=== PATIENT | female | born 1990 | race African-American/Black ===

== ENCOUNTER 2016-08-04 10:00 | Emergency (ER) | payer OTHER ==
[2016-08-04 10:33] VITALS: TEMP 98.5; BMI 30.8
[2016-08-04] MEDS ORDERED: ONDANSETRON 4 MG/2 ML VIAL IVPUSH ONE (10:53)
[2016-08-04] MEDS ORDERED: SODIUM CHLORIDE 1,000 ML IV STA (10:53)
--- NOTE | 2016-08-04 10:53 | PDOC ---
History of Present Illness - General History Source: Patient Exam Limitations: No Limitations - History of Present Illness Initial Comments: 08/04/16 10:56 The patient is a 26 year old female (18 weeks ) with no significant past medical history who presents to the ED with abdominal pain since last night. The patient reports she ate a buffalo chicken sandwich with blue cheese last night. She states she woke up at 4 am this morning with a sudden onset of abdominal pain. Patient reports generalized abdominal pain that is worse in her lower quadrant. Patient reports nausea and vomiting associated with present symptoms. Denies fevers or chills. Denies diarrhea or hematochezia. Denies headache or dizziness. Denies dysuria or changes in urinary output. Denies any other symptoms. <Violette Recio - Last Filed: 08/04/16 10:56> <Danae Dunlap - Last Filed: 08/04/16 14:19> - General Chief Complaint: Pain Stated Complaint: Nausea/ABD PAIN Time Seen by Provider: 08/04/16 10:38 Past History <Violette Recio - Last Filed: 08/04/16 10:56> - Past Medical History Other medical history: denies - Reproductive History Is Patient Now?: Yes - Psycho/Social/Smoking Cessation Hx Suicidal Ideation: No Smoking History: Current some day smoker Number of Cigarettes Smoked Daily: 0 Information on smoking cessation initiated: No Hx Alcohol Use: No Drug/Substance Use Hx: Yes Substance Use Type: Marijuana <Danae Dunlap - Last Filed: 08/04/16 14:19> - Past Medical History Allergies/Adverse Reactions: Allergies Allergy/AdvReac Type Severity Reaction Status Date / Time No Known Allergies Allergy Verified 08/04/16 10:27 Home Medications: Ambulatory Orders NK [No Known Home Medication] 08/04/16 Review of Systems - Review of Systems Able to Perform ROS?: Yes Comments:: 08/04/16 10:57 GENERAL/CONSTITUTIONAL: No fever or chills. No weakness. HEAD, EYES, EARS, NOSE AND THROAT: No change in vision. No ear pain or discharge. No sore throat. CARDIOVASCULAR: No chest pain or shortness of breath. RESPIRATORY: No cough, wheezing, or hemoptysis. GASTROINTESTINAL:+ abdominal pain, nausea, vomiting. No diarrhea or constipation. GENITOURINARY: No dysuria, frequency, or change in urination. MUSCULOSKELETAL: No joint or muscle swelling or pain. No neck or back pain. SKIN: No rash NEUROLOGIC: No headache, vertigo, loss of consciousness, or change in strength/ sensation. ENDOCRINE: No increased thirst. No abnormal weight change. HEMATOLOGIC/LYMPHATIC: No anemia, easy bleeding, or history of blood clots. ALLERGIC/IMMUNOLOGIC: No hives or skin allergy. All Other Systems: Reviewed and Negative <Violette Recio - Last Filed: 08/04/16 10:56> *Physical Exam - Vital Signs Last Vital Signs Temp Pulse Resp BP Pulse Ox 98.5 F 61 16 127/79 100 08/04/16 10:00 08/04/16 10:00 08/04/16 10:08/04/16 10:00 08/04/16 10:00 - Physical Exam Comments: 08/04/16 10:57 GENERAL: Awake, alert, and fully oriented, in no acute distress HEAD: No signs of trauma EYES: PERRLA, EOMI, sclera anicteric, conjunctiva clear ENT: Auricles normal inspection, hearing grossly normal, nares patent, oropharynx clear without exudates. Moist mucosa NECK: Normal ROM, supple, no lymphadenopathy, JVD, or masses LUNGS: Breath sounds equal, clear to auscultation bilaterally. No wheezes, and no crackles HEART: Regular rate and rhythm, normal S1 and S2, no murmurs, rubs or gallops ABDOMEN: + mild right lower quadrant tenderness. Soft, normoactive bowel sounds. No guarding, no rebound. No masses EXTREMITIES: Normal range of motion, no edema. No clubbing or cyanosis. No cords, erythema, or tenderness NEUROLOGICAL: Cranial nerves II through XII grossly intact. Normal speech, normal gait SKIN: Warm, Dry, normal turgor, no rashes or lesions noted. <Violette Recio - Last Filed: 08/04/16 10:56> - Vital Signs Last Vital Signs Temp Pulse Resp BP Pulse Ox 98.5 F 61 16 127/79 100 08/04/16 10:00 08/04/16 10:00 08/04/16 10:00 08/04/16 10:00 08/04/16 10:00 <Danae Dunlap - Last Filed: 08/04/16 14:19> ED Treatment Course - LABORATORY CBC & Chemistry Diagram: 08/04/16 10:56 08/04/16 10:56 <Danae Dunlap - Last Filed: 08/04/16 14:19> Medical Decision Making - Medical Decision Making 08/04/16 14:08 Pt reports improvement in symptoms. Minimal RLQ tenderness on exam. No elevated WBC, no fever. Offering PO challenge. Await UA. <Danae Dunlap - Last Filed: 08/04/16 14:19> *DC/Admit/Observation/Transfer - Attestations Scribe Attestion: 08/04/16 10:57 Documentation prepared by Violette Recio, acting as certified medical technician assistant for Danae Dunlap MD <Violette Recio - Last Filed: 08/04/16 10:56> - Discharge Dispostion Admit: No <Danae Dunlap - Last Filed: 08/04/16 14:19> Diagnosis at time of Disposition: Abdominal pain affecting - Discharge Dispostion Disposition: HOME Condition at time of disposition: Stable
[2016-08-04] MEDS ORDERED: ONDANSETRON 4 MG/2 ML VIAL ONE (11:02)
[2016-08-04 11:03] LABS: BASOPHIL 0.6 % (0-2.0); EOSINOPHIL 1.3 % (0-4.5); MCH 35.1 pg (25.7-33.7); MCHC 33.8 g/dl (32.0-36.0); MEAN CELL VOLUME 103.9 fl (80-96); MEAN PLT VOLUME 8.8 fl (7.5-11.1); NEUTROPHILS 69.7 % (42.8-82.8); PLATELET COUNT 134 K/MM3 (134-434); RDW 12.4 % (11.6-15.6); WHITE BLOOD COUNT 7.2 K/mm3 (4.0-10.0)
[2016-08-04] MEDS ORDERED: ACETAMINOPHEN 325 MG TABLET (FP) PO ONE (11:09)
[2016-08-04] MEDS ORDERED: ACETAMINOPHEN 325 MG TABLET (FP) ONE (11:09)
[2016-08-04 11:29] LABS: ALBUMIN 3.2 g/dl (3.4-5.0); ANION GAP 10 (8-16); BILIRUBIN,TOTAL 0.3 mg/dL (0.2-1.0); CALCIUM 8.7 mg/dL (8.5-10.1); CO2 24 mmol/L (21-32); COCKROFT - GAULT 295.5875; CREATININE 0.5 mg/dL (0.55-1.02); GLUCOSE,RANDOM 75 mg/dL (74-106); SGOT/AST 14 U/L (15-37); SGPT/ALT 12 U/L (12-78); TOT PROT 6.5 g/dl (6.4-8.2)
[2016-08-04 11:44] LABS: ALK PHOS 55 U/L (45-117)
[2016-08-04 14:28] VITALS: BP 137/64; PULSE 74
[2016-08-04 14:31] LABS: URINE APPEARANCE CLEAR; URINE BILIRUBIN NEGATIVE (NEGATIVE); URINE BLOOD NEGATIVE (NEGATIVE); URINE COLOR LTYELLOW; URINE GLUCOSE (UA) NEGATIVE (NEGATIVE); URINE KETONE NEGATIVE (NEGATIVE); URINE LEUK ESTERASE NEGATIVE (NEGATIVE); URINE NITRITE NEGATIVE (NEGATIVE); URINE PROTEIN NEGATIVE (NEGATIVE); URINE UROBILINOGEN NEGATIVE E.U./dl (0.2-1.0)
== END 2016-08-04 14:27 | disposition home or self-care (01) ==
LOC: JER 10:00
PROC: 3E033GC Introduction of Other Therapeutic Substance into Peripheral Vein, Percutaneous Approach (ICD-10-PCS; principal; 2016-08-04)
PROC: 3E0337Z Introduction of Electrolytic and Water Balance Substance into Peripheral Vein, Percutaneous Approach (ICD-10-PCS; 2016-08-04)
DX: O26.892 Other specified pregnancy related conditions, second trimester (principal); R10.84 Generalized abdominal pain; Z3A.18 18 weeks gestation of pregnancy; F17.210 Nicotine dependence, cigarettes, uncomplicated
CPT/HCPCS: 36415; 76801-TC; 80053; 81003; 83690; 84702; 85025; 87086; 96361; 96374; 99283-25

== ENCOUNTER 2017-12-23 19:50 | Emergency (ER) | payer SELFPAY ==
--- NOTE | 2017-12-23 20:12 | PDOC ---
Attending Attestation - HPI HPI: 12/23/17 21:15 The patient is a 27 year old female brought via EMS, with no significant past medical history, who presents to the ED complaining of abdominal pain, nausea and vomit onset today. She describes her abdominal pain as ranging from mild to moderate, localized in the epigastric region adn RUQ. She denies any radiation or modifying factors. She notes multiple episodes of emesis, nonbloody and nonbilious. She reports that she was drinking alcohol last night and shes usually not a drinker. The patient had an elective on 12/19/17, for which she had 2 doses of the pill at 8 weeks . The patient has a follow up appointment in 5 days. The patient is currently being treated for a UTI. The patient denies chest pain, shortness of breath, headache and dizziness. Denies fever, chills, diarrhea or constipation. Allergies: None Past surgical history: None reported Social History: Alcohol and mairjuana use - Physicial Exam PE: 12/23/17 21:15 Vitals: Triage vital signs reviewed General Appearance: No acute distress, well nourished, well developed Head: Atraumatic Eyes: Pupils equal reactive round, extraocular movement intact Ears: TM's normal bilaterally Nose: Nares patent bilaterally; no nasal congestion Throat: Posterior oropharynx without erythema, mucous membranes moist Neck: Supple; No nuchal rigidity Chest Wall: Nontender Cardiac: Regular rate and rhythm, no murmurs, no rubs, no gallops Lungs: Clear to auscultation bilateral, good air movement bilaterally Abdomen: (+) Right lower quadrant tenderness. Soft, nondistended, normal bowel sounds Rectal: Exam deferred Extremities: Full range of motion to all extremities, no cyanosis, clubbing, or edema Skin: Warm and dry, no rashes or lesions, no rash, no petechiae Neuro: AOX3; Cranial Nerves 2-12 grossly intact, Strength intact to all extremities, Sensation intact to all extremities, gait normal Psych: Normal mood, normal affect <Tadeo Haney - Last Filed: 12/23/17 21:15> - Resident Resident Name: Vivian Parada - ED Attending Attestation I have performed the following: I have examined & evaluated the patient, The case was reviewed & discussed with the resident, I agree w/resident's findings & plan, Exceptions are as noted - Medical Decision Making 12/24/17 03:19 27 years old with right sided abdominal discomfort. Patient had an elective via methotrexate on 1016 she states that her prior ultrasound demonstrated a intrauterine . Chest follow-up in 5 days and she is currently being treated for UTI. During her workup with her [employer] she was noted to have fibroids She presents to the emergency department with right-sided abdominal discomfort intermittent with no clear exacerbating or alleviating factors. Given the recent and right-sided abdominal pain and transvaginal ultrasound as well as CAT scan were ordered There was no acute pathology noted on either imaging Status post Toradol patient feels better She will follow-up with her [employer] in 5 days return to the emergency department for any severe returning symptoms or for any concerns. <Sharad Jameson - Last Filed: 12/24/17 03:19>
[2017-12-23 20:17] VITALS: BP 123/62; PULSE 63; TEMP 98.4; BMI 29.4
[2017-12-23] MEDS ORDERED: ACETAMINOPHEN 1000 MG/100 ML VIAL (NON FORMULARY) IVPB ONE (20:33)
[2017-12-23] MEDS ORDERED: SODIUM CHLORIDE 0.9% 500 ML INFUS.BAG IV ONE (20:33)
[2017-12-23] MEDS ORDERED: ONDANSETRON 4 MG/2 ML VIAL IVPUSH ONE (20:35)
--- NOTE | 2017-12-23 20:52 | PDOC ---
History of Present Illness - General Chief Complaint: Alcohol intoxication Stated Complaint: STOMACH PAIN Time Seen by Provider: 12/23/17 20:07 History Source: Patient Exam Limitations: No Limitations - History of Present Illness Initial Comments: 12/23/17 20:15 This is a 27 YOF who is , had elective medical 12/19/17, and current UTI for which she is being treated, who drank excessive EtOH last night and awakened this morning with abdominal pain which is diffuse but worse in RUQ , RLQ, and epigastrium and has worsened throughout the day now at a constant 10/ 10 despite taking tramadol at home. She additionally notes nausea, a few episodes NBNB vomiting, and a few episodes black sticky stool. She denies fever , chills, constipation, vaginal discharge, SOB, chest pain, headache, neck pain , lightheadedness, or other symptoms. She attempted to eat today but was not able to keep anything down, and eating made the pain a bit worse. She has had continued mild vaginal bleeding for the past several days since taking the medication. She denies having an ectopic and states that she decided to have the elective because she was not ready to have another child. Past History - Past Medical History Allergies/Adverse Reactions: Allergies Allergy/AdvReac Type Severity Reaction Status Date / Time No Known Allergies Allergy Verified 08/04/16 10:27 Home Medications: Ambulatory Orders NK [No Known Home Medication] 08/04/16 - Suicide/Smoking/Psychosocial Hx Smoking History: Current every day smoker Have you smoked in the past 12 months: Yes Number of Cigarettes Smoked Daily: 0 Information on smoking cessation initiated: No Hx Alcohol Use: Yes Drug/Substance Use Hx: No Substance Use Type: Marijuana Review of Systems - Review of Systems Able to Perform ROS?: Yes Constitutional: Yes: Malaise. No: Chills, Fever, Unexplained wgt Loss HEENTM: No: Nose Congestion, Throat Pain Respiratory: No: Cough, Shortness of Breath Cardiac (ROS): No: Chest Pain, Palpitations ABD/GI: Yes: Nausea, Vomiting, Other (black stool, abdominal pain). No: Constipated : Yes: Burning, Dysuria, Other (vaginal bleeding). No: Discharge, Frequency, Hematuria Musculoskeletal: No: Back Pain, Neck Pain Integumentary: No: Bruising, Rash Neurological: No: Headache, Numbness, Tingling, Weakness, Dizziness Endocrine: No: Unexplained Weight Gain, Unexplained Weight Loss *Physical Exam - Vital Signs Last Vital Signs Temp Pulse Resp BP Pulse Ox 98.4 F 63 18 123/62 100 12/23/17 20:12 12/23/17 20:12 12/23/17 20:12 12/23/17 20:12 12/23/17 20:12 GENERAL: uncomfortable appearing, mild distress, nontoxic nourished, A/Ox4, speaking in full sentences, answers questions appropriately, obese HEENT: PERRLA, EOMI, moist mucous membranes, no posterior pharyngeal erythema, no tonsillar swelling or exudates, no cervical lymphadenopathy NECK: No midline ttp, no spinal stepoff or deformity, full ROM, supple CARDIOVASCULAR: Regular rate and rhythm, normal S1S2, no MGR, radial and DP pulses 2+ and symmetric, capillary refill <2 seconds, extremities warm and well- perfused LUNGS/RESPIRATORY: No respiratory distress, normal and symmetric chest movements during respirations, lungs CTA bilaterally, equal breath sounds, no cyanosis, no nail clubbing GI/ABDOMEN: Symmetric appearance, normoactive bowel sounds, soft, moderate RLQ tenderness to palpation and mild RUQ/suprapubic ttp, no midline pulsatile masses , no palpated organomegaly : No CVA tenderness, normal external appearance, no lesions, on bimanual exam there is mild right adnexal ttp, no left adnexal ttp, no CMT, small amount of dark red blood, no discharge BACK: No midline ttp or stepoff or deformity of thoracic or lumbar spine EXTREMITIES: distal pulses 2+, warm and well-perfused, no LE edema SKIN: Warm and dry, no pallor, no jaundice, no bruising, no rash, no skin breakdown, no cuts, no lesions NEUROLOGICAL: GCS 15, CN II-XII grossly intact, ambulating with normal gait, moving all extremities, 5/5 strength proximally and distally, no facial droop, no decreased sensation ED Treatment Course - LABORATORY CBC & Chemistry Diagram: 12/23/17 21:15 12/23/17 21:15 - RADIOLOGY Radiology Studies Ordered: Category Date Time Status GALLBLADDER US [US] Stat Ultrasound 12/23/17 20:33 Ordered Medical Decision Making - Medical Decision Making 12/23/17 23:25 Adult female Pt p/w RLQ pain. Initial Vital Signs Temp Pulse Resp BP Pulse Ox 98.4 F 63 18 123/62 100 12/23/17 20:12 12/23/17 20:12 12/23/17 20:12 12/23/17 20:12 12/23/17 20:12 Exam: As noted in Physical Exam section. DDX IBNLT: UTI/pyelonephritis, renal colic, ovarian torsion, ovarian cyst, ectopic , PID, TOA, endometritis, salpingitis, oophoritis, Vitcor Manuel-Varghese- Deonte syndrome (if involving liver capsule ACS, AAA/AD, malignancy, hernia, cholecystitis, pancreatitis, gastritis, PUD, appendicitis, diverticulitis wwo abscess or perforation, colitis, regional ileitis (Crohns disease), SBO, bowel ischemia, bowel perforation, constipation, musculoskeletal, primary dysmenorrhea , endometriosis, fibroids, etc. W/U ordered: CBCD CMP Mg Phos Coags T&S GC/Chlam/trich NAAT (cervical swab), GC culture, TVUS TX ordered: IVF, Ofirmev, Zofran Laboratory Tests 12/23/17 12/23/17 12/23/17 21:15 21:15 21:15 WBC 7.1 RBC 3.81 Hgb 12.5 Hct 36.8 MCV 96.7 H MCH 32.9 MCHC 34.0 RDW 14.1 D Plt Count 192 D MPV 9.1 Absolute Neuts (auto) 6.0 Neutrophils % 85.2 H D Lymphocytes % 10.9 D Monocytes % 3.5 L Eosinophils % 0.0 D Basophils % 0.4 Nucleated RBC % 0 Sodium 143 Potassium 3.7 Chloride 108 H Carbon Dioxide 24 Anion Gap 11 BUN 6 L Creatinine 0.5 L Creat Clearance w eGFR > 60 Random Glucose 74 Lactic Acid 1.0 Calcium 8.4 L Total Bilirubin 0.4 AST 15 ALT 13 Alkaline Phosphatase 64 Troponin I Total Protein 7.1 Albumin 3.7 Lipase 49 L Beta HCG, Quant 1844.3 12/23/17 21:15 WBC RBC Hgb Hct MCV MCH MCHC RDW Plt Count MPV Absolute Neuts (auto) Neutrophils % Lymphocytes % Monocytes % Eosinophils % Basophils % Nucleated RBC % Sodium Potassium Chloride Carbon Dioxide Anion Gap BUN Creatinine Creat Clearance w eGFR Random Glucose Lactic Acid Calcium Total Bilirubin AST ALT Alkaline Phosphatase Troponin I < 0.02 Total Protein Albumin Lipase Beta HCG, Quant Reassessment: Patient states pain is improved, repeat exam with mild RLQ ttp and minimal RUQ/epigastric ttp. Repeat VS: ADMIT The Pts symptoms persist despite ED treatments. The Pt is unsafe for discharge at this time. They require further hospital observation, workup, and treatment. Microblog sent to [facility] for admission.Blank Decision to Admit order is placed per ED protocol. Spoke with admitting team policy services representative, in agreement Pt to be admitted.Decision to Admit order corrected with admitting team covering attendings name. Decision to Admit order placed to admitting team covering attending. DISCHARGE This patient has gotten significant relief of symptoms while in the ED.On last reassessment, vitals are wnl, pain is reasonably controlled, and exam is benign.Workup is not concerning for emergency-level pathology at this time.This patient is appropriate for discharge with close outpatient follow up. The Pt is comfortable with this plan and will follow up with their primary care provider in 1-3 days. She will take Motrin and/or Tylenol for pain. Specific return precautions are discussed and they will come back to the ER if necessary. 12/23/17 23:27 *DC/Admit/Observation/Transfer Diagnosis at time of Disposition: Abdominal pain Qualifiers: Abdominal location: unspecified location Qualified Code(s): R10.9 - Unspecified abdominal pain Vomiting Qualifiers: Vomiting type: unspecified Vomiting Intractability: non-intractable Nausea presence: with nausea Qualified Code(s): R11.2 - Nausea with vomiting, unspecified - Discharge Dispostion Disposition: HOME Condition at time of disposition: Stable Decision to Admit order: No - Referrals - Patient Instructions Printed Discharge Instructions: DI for Abdominal Pain-Adult Additional Instructions: Please take Motrin and/or Tylenol for mild abdominal pain. Focus on keeping down fluids (it is not as important to eat solids). Follow up with your [facility] doctor today (Sunday) Call their office in the morning when they open, tell them you were seen in the ER for abdominal pain, and tell them you need a same- day appointment. Return to the ER for any new or worsening symptoms, especially worsening abdominal pain you cannot control with Tylenol/Motrin, vaginal discharge, fever, vomiting blood, bloody stool, or other symptoms. - Post Discharge Activity
[2017-12-23] MEDS ORDERED: ACETAMINOPHEN INJECTION 100 ML IVPB ONE (21:19)
[2017-12-23] MEDS ORDERED: ONDANSETRON 4 MG/2 ML VIAL ONE (21:20)
[2017-12-23 21:25] LABS: BASO % 0.4 % (0-2.0); HEMATOCRIT 36.8 % (32.4-45.2); HEMOGLOBIN 12.5 GM/dL (10.7-15.3); LYMPH % 10.9 % (8-40); MCH 32.9 pg (25.7-33.7); MEAN CELL VOLUME 96.7 fl (80-96); MEAN PLT VOLUME 9.1 fl (7.5-11.1); MONO % 3.5 % (3.8-10.2); NEUT % 85.2 % (42.8-82.8); PLATELET COUNT 192 K/MM3 (134-434); RBC 3.81 M/mm3 (3.60-5.2); RDW 14.1 % (11.6-15.6); WHITE BLOOD COUNT 7.1 K/mm3 (4.0-10.0)
[2017-12-23 22:29] LABS: ALBUMIN 3.7 g/dl (3.4-5.0); ALK PHOS 64 U/L (45-117); ANION GAP 11 MMOL/L (8-16); BILIRUBIN,TOTAL 0.4 mg/dL (0.2-1); BLOOD UREA NITROGEN 6 mg/dL (7-18); CALCIUM 8.4 mg/dL (8.5-10.1); CHLORIDE 108 mmol/L (98-107); CO2 24 mmol/L (21-32); CREATININE 0.5 mg/dL (0.55-1.3); GLUCOSE,RANDOM 74 mg/dL (74-106); LIPASE 49 U/L (73-393); POTASSIUM 3.7 mmol/L (3.5-5.1); SGOT/AST 15 U/L (15-37); SGPT/ALT 13 U/L (13-61); SODIUM 143 mmol/L (136-145); TOT PROT 7.1 g/dl (6.4-8.2)
[2017-12-24 00:50] LABS: URINE APPEARANCE CLEAR; URINE BILIRUBIN NEGATIVE (<2.0 mg/dL); URINE COLOR YELLOW; URINE GLUCOSE (UA) NEGATIVE (NEGATIVE); URINE KETONE 2+ (NEGATIVE); URINE LEUK ESTERASE 1+ (NEGATIVE); URINE NITRITE NEGATIVE (NEGATIVE); URINE PROTEIN 1+ (NEGATIVE); URINE UROBILINOGEN NEGATIVE mg/dL (0.2-1.0)
[2017-12-24 00:55] LABS: EPI CELLS RARE /HPF (FEW); URINE BACTERIA RARE /hpf (NONE SEEN); URINE HYALINE CAST 2 /lpf; URINE MUCUS FEW
[2017-12-24] MEDS ORDERED: KETOROLAC TROMETHAMINE 30 MG/1 ML VIAL IVPUSH ONE (01:17)
[2017-12-24] MEDS ORDERED: KETOROLAC TROMETHAMINE 30 MG/1 ML VIAL ONE (01:18)
--- NOTE | 2017-12-24 21:26 | EKG ---
Test Reason : Blood Pressure : / mmHG Vent. Rate : 056 BPM Atrial Rate : 056 BPM P-R Int : 124 ms QRS Dur : 084 ms QT Int : 438 ms P-R-T Axes : 108 150 137 degrees QTc Int : 422 ms SUSPECT ARM LEAD REVERSAL, INTERPRETATION ASSUMES NO REVERSAL SINUS BRADYCARDIA WITH PREMATURE ATRIAL COMPLEXES LATERAL INFARCT , AGE UNDETERMINED ABNORMAL ECG NO PREVIOUS ECGS AVAILABLE Confirmed by RACHEL JAVIER MD ([id number]) on 12/24/2017 9:26:30 PM Referred By: Confirmed By:RACHEL JAVIER MD
== END 2017-12-24 02:14 | disposition home or self-care (01) ==
LOC: JER 19:50
PROC: 3E033NZ Introduction of Analgesics, Hypnotics, Sedatives into Peripheral Vein, Percutaneous Approach (ICD-10-PCS; principal; 2017-12-23)
PROC: 3E0333Z Introduction of Anti-inflammatory into Peripheral Vein, Percutaneous Approach (ICD-10-PCS; 2017-12-23)
PROC: 3E033GC Introduction of Other Therapeutic Substance into Peripheral Vein, Percutaneous Approach (ICD-10-PCS; 2017-12-23)
DX: R10.9 Unspecified abdominal pain (principal); Z87.440 Personal history of urinary (tract) infections
CPT/HCPCS: 36415; 76705-TC; 76830-TC; 80053; 81003; 81015; 82272; 83605; 83690; 84484; 84702; 85025; 87086; 87186; 93005; 93010; 99283-25; J0131